=== PATIENT | male | born 1975 | race Caucasian/White ===

== ENCOUNTER → 2021-04-10 19:45 | Outpatient (CLI) | payer OTHER, SELFPAY ==
--- NOTE | 2021-04-10 | DI.MRI.S_ITS ---
PROCEDURE: MR SHOULDER LT WO CON INDICATIONS: Pain in left shoulder TECHNIQUE: Noncontrast oblique coronal T2 fast spin echo with fat saturation, oblique sagittal T1 spin echo and T2 fast spin echo with fat saturation, axial T1 spin echo and T2 fast spin echo with fat saturation through the shoulder. COMPARISON: None. FINDINGS: Image quality: Excellent. Rotator cuff: There is hyperintense signal within the posterior supraspinatus tendon and anterior infraspinatus tendon that could represent moderate to high grade bursal sided tearing in the absence of a prior surgery, measuring approximately 3 mm in anterior-posterior dimension. Some articular sided fibers remain in continuity. There is moderate supraspinatus tendinosis. The teres minor and subscapularis tendons are intact. There is no significant rotator cuff muscle atrophy. Mild edema is seen within the teres minor muscle that could represent mild or early denervation changes. No mass is seen along the course of the axillary nerve. Bones and bursae: There is no acute trabecular bone injury. Hyperintense signal at the greater tuberosity could represent chronic traction cystic changes or possibly tendon anchors if there has been prior surgery. There is mild to moderate acromioclavicular joint osteoarthrosis. Chronic posttraumatic deformity of the midshaft of the clavicle is only partially imaged. There is a trace subacromial/subdeltoid bursal effusion. No significant glenohumeral effusion is present. Capsule and soft tissues: No displaced labral tear is seen. There is mild tendinosis of the intra-articular portion of the biceps long head tendon. There is partial effacement of the rotator interval fat. There is mild thickening of the inferior glenohumeral ligament. IMPRESSION: 1. Focal hyperintense signal at the posterior supraspinatus tendon/anterior infraspinatus tendon measuring 3 mm in anterior-posterior dimension could represent postsurgical changes if there has been a history of rotator cuff surgery versus a moderate to high-grade bursal surface tearing. Some articular sided fibers remain in continuity. 2. Mild tendinosis of the biceps long head tendon. 3. Mild to moderate acromioclavicular joint osteoarthrosis. 4. Mild increased signal in the teres minor muscle may indicate mild or early denervation changes. No mass is seen along the course of the axillary nerve. 5. Partial effacement of the rotator interval fat and mild thickening of the inferior glenohumeral ligament are nonspecific, but can be seen in the setting of the clinical syndrome of adhesive capsulitis. Dictated by: Newton Perdomo M.D. on 04/11/2021 at 9:02 Approved by: Newton Perdomo M.D. on 04/11/2021 at 9:25
== END ==
DX: M25.512 Pain in left shoulder (principal); M19.012 Primary osteoarthritis, left shoulder
CPT/HCPCS: 73221

== ENCOUNTER → 2022-04-10 13:25 | Outpatient (CLI) | payer OTHER, SELFPAY ==
[2022-04-10 14:47] LABS: COVID19 -Nasal RAPID Negative (Negative)
== END ==
PROVIDERS: Visit Provider Surgery
DX: Z01.812 Encounter for preprocedural laboratory examination (principal); Z20.822 Contact with and (suspected) exposure to COVID-19
CPT/HCPCS: 87635; C9803

== ENCOUNTER 2022-04-13 07:46 | Day surgery (SDC) | payer OTHER, SELFPAY ==
--- NOTE | 2022-04-13 | PATH_ITS ---
[facility] Accession Number: [id number] . 01 Material submitted: . colon - ASCENDING COLON POLYP . 01 Diagnosis: Ascending Colon, Polyp, Biopsy: Sessile serrated adenoma. MRV 04/15/2022 1324 Local . 01 Electronically signed: . Telma Webster MD, Pathologist NPI- [id number] . 01 Gross description: . ASCENDING COLON POLYP: Received in formalin are 3 fragment(s) of falcon, soft tissue measuring 0.9 x 0.7 x 0.1 cm to 0.5 x 0.5 x 0.3 cm submitted entirely in 1 cassette(s) /CPE 04/14/2022 0536 Local . 01 Pathologist provided ICD-10: D12.2 . 01 CPT . 417540 Specimen Comment: A courtesy copy of this report has been sent to [phone] Performed at: 01 [facility] [address] [place] [address], [place], [place] [id number] MD Chavez Muñiz MD Phone: [phone]
--- NOTE | 2022-04-13 08:09 | PM.HP.1 ---
History of Present Illness History of Present Illness Date Patient Seen: 04/13/22 Time Patient Seen: 08:57 Chief complaint: SDC Narrative: Here for colon cancer screening. Meds Home Medications and Allergies Home Medications Medication Instructions Recorded Confirmed Type meloxicam 15 mg tablet 15 tab PO DAILY 04/13/22 04/13/22 History Allergies Allergy/AdvReac Type Severity Reaction Status Date / Time No Known Drug Allergies Allergy Verified 04/13/22 08:12 Review of Systems Review of Systems ROS: Yes All systems reviewed with the patient and are negative except as otherwise documented Exam Const General: cooperative HENMT Head: normal to inspection Eyes General: appearance normal, both eyes and all related structures Neck Neck: normal visual inspection Chest Chest: normal inspection of the chest Resp Effort & Inspection: normal respiratory effort Cardio Rate: regular rate GI Inspection: normal to inspection Skin Hair: normal Neuro General: patient alert Assessment & Plan Assessment & Plan narrative: 46-year-old male indicated for colon cancer screening. Colonoscopy is planned for today. Time Spent With Patient Critical Care time: I spent a total of [] minutes of critical care time on this patient's care today; this time is exclusive of procedural time.
[2022-04-13] MEDS: SODIUM CHLORIDE 0.9% 1,000 ML 100 ML IV (08:15)
[2022-04-13 08:22] VITALS: BP 128/70; PULSE 68; RESP 18; TEMP 36.5; O2SAT 100; BMI 27.8
--- NOTE | 2022-04-13 08:59 | PM.PREOP ---
Pre-operative Note COVID-19 COVID-19 status: Negative Result date/Date tested (Pos, Neg/Pending): 04/10/22 Criteria for continued procedure: Possibility delay results in more complex future surgery or treatment Interval Note History & Physical reviewed/Exam performed by Physician: Yes Changes to H&P: No ASA Class (for procedural sedation): I
--- NOTE | 2022-04-13 10:11 | PM.OP.COLON ---
Operative Date/Time/Diagnoses Date of procedure: 04/13/22 Time of procedure: 10:12 Pre-op diagnosis: Colon cancer screening Post-op diagnosis: same Procedure & Clinicians Study performed: Colonoscopy with hot snare polypectomy Same procedure as scheduled: Yes Indications: Colon cancer screen Surgeon: Deondre Funk Procedure Notes SCOAP/Timeout: Done Procedure in detail: After the risks and benefits were explained, written and verbal informed consent was obtained. The patient was brought into the procedure room and placed into the left lateral decubitus position. Conscious sedation medication was applied as per nursing documentation. Digital rectal examination was accomplished. The scope was introduced into the patient and advanced under direct visualization to the cecum as identified by the appendiceal orifice and ileocecal valve. The scope was slowly withdrawn to carefully examine the mucosa for any defects or lesions. Comprehensive imaging was accomplished throughout the rectum including the dentate line. The colon was decompressed, the scope was then removed from the patient who tolerated the procedure well. Bowel prep adequate Adult colonoscope Scope withdrawal time: 18 minutes Sedation minutes: 25 Complications: none Impression: There was a sessile 13 mm polyp in the ascending colon removed with hot snare. After the initial excision, there was a small amount of residual polyp remaining and this was removed with the 2nd application of the snare. No additional pathology was appreciated throughout the exception of grade 1 internal hemorrhoids. Endoscopic diagnosis 1. Colon polyp 2. Hemorrhoids grade 1 Post-procedure Plan for aftercare: 1. Await histopathology 2. Repeat colonoscopy will likely be suggested for 3 years. Disposition: PACU
[2022-04-13 10:13] VITALS: BP 90/54; PULSE 78; RESP 16; TEMP 36.5; O2SAT 97
[2022-04-13 10:16] VITALS: BP 96/64; PULSE 82; RESP 12; TEMP 36.6; O2SAT 97
[2022-04-13 10:20] VITALS: BP 105/72; PULSE 74; RESP 14; TEMP 36.6; O2SAT 97
[2022-04-13 10:27] VITALS: BP 102/73; PULSE 63; RESP 11; TEMP 36.4; O2SAT 97
== END 2022-04-13 10:40 | disposition home or self-care (01) ==
PROVIDERS: Referring Provider Internal Medicine Gastroenterology; Visit Provider Internal Medicine Gastroenterology
PROC: 0DJD8ZZ Inspection of Lower Intestinal Tract, Via Natural or Artificial Opening Endoscopic (ICD-10-PCS; CPT 45378; principal; 2022-04-13 09:00)
DX: Z12.11 Encounter for screening for malignant neoplasm of colon (principal); K64.0 First degree hemorrhoids; D12.2 Benign neoplasm of ascending colon
CPT/HCPCS: 45385; J2704